=== PATIENT | male | born 1975 | race Caucasian/White ===

== ENCOUNTER 2018-12-11 07:09 | Emergency (ER) | payer BC, OTHER ==
[2018-12-11 07:25] VITALS: BP 131/86
--- NOTE | 2018-12-11 07:29 | UC ---
Respiratory Complaint HPI - HPI Summary HPI Summary: 43 yo male with allergic rhinitis x 2 mos now with >10 day hx of worseing pain (frontal and max ) sinus pressure bilateral ear ache malaise and lassitude no fever chest tight and mild dyspnea and non productive cough He has a history of childhood asthma. He states he gets frequent bronchitis and requires treatment with an inhaler. - History of Current Complaint Chief Complaint: UCRespiratory Stated Complaint: HEAD/ CHEST CONGESTION Time Seen by Provider: 12/11/18 07:27 Hx Obtained From: Patient Onset/Duration: Gradual Onset, Lasting Weeks, Worse Since - >10 days Severity Initially: Mild Severity Currently: Severe Pain Intensity: 8 Pain Scale Used: 0-10 Numeric Character: Cough: Nonproductive Aggravating Factors: Deep Breaths, Recumbent Position Alleviating Factors: Nothing Associated Signs And Symptoms: Positive: Dyspnea - at times, URI, Nasal Congestion, Hoarseness, Sinus Discomfort Related History: Seasonal Allergies, Similar Episode/Dx as: - Bronchitis - Allergies/Home Medications Allergies/Adverse Reactions: Allergies Allergy/AdvReac Type Severity Reaction Status Date / Time codeine Allergy Intermediate GI Upset Verified 12/11/18 07:24 doxycycline Allergy Intermediate Vomiting Verified 12/11/18 07:24 hayfever Allergy Intermediate Runny Nose Uncoded 12/11/18 07:24 Home Medications: Home Medications Cetirizine HCl [Zyrtec] 1 tab PO DAILY 12/11/18 [History Confirmed 12/11/18] Oxymetazoline 0.05% NASAL SPR* [Afrin 0.05% NASAL SPRAY*] 1 spray INH QPM [History Confirmed 12/11/18] PMH/Surg Hx/FS Hx/Imm Hx Previously Healthy: Yes - MÓNICA Respiratory History: Asthma, Bronchitis - Surgical History Surgical History: Yes Surgery Procedure, Year, and Place: 1993 - LEFT knee surgery - Family History Known Family History: Positive: Hypertension - Social History Alcohol Use: Occasionally Substance Use Type: Marijuana Smoking Status (MU): Light Every Day Tobacco Smoker Amount Used/How Often: Social/light smoker Length of Time of Smoking/Using Tobacco: On and off 20+ years Household Exposure Type: Cigarettes Review of Systems All Other Systems Reviewed And Are Negative: Yes Constitutional: Positive: Fatigue ENT: Positive: Ear Ache, Nasal Discharge, Sinus Congestion, Sinus Pain/ Tenderness Respiratory: Positive: Shortness Of Breath - mild and rare, Cough Cardiovascular: Positive: Negative Gastrointestinal: Positive: Negative Genitourinary: Positive: Negative Motor: Positive: Negative Neurovascular: Positive: Negative Musculoskeletal: Positive: Negative Neurological: Positive: Negative Psychological: Positive: Negative Physical Exam Triage Information Reviewed: Yes Appearance: Well-Appearing, No Pain Distress, Well-Nourished Vital Signs: Initial Vital Signs Temp 99.3 F 12/11/18 07:18 Pulse 84 12/11/18 07:18 Resp 20 12/11/18 07:18 BP 131/86 12/11/18 07:18 Pulse Ox 96 12/11/18 07:18 Vital Signs Reviewed: Yes Eyes: Positive: Conjunctiva Clear ENT: Positive: Hearing grossly normal, TM bulging. Negative: Nasal congestion, Nasal drainage, Tonsillar swelling, Tonsillar exudate, Trismus, Muffled voice, Sinus tenderness, Uvula midline Neck: Positive: Supple, Nontender, No Lymphadenopathy Respiratory: Positive: Lungs clear, Normal breath sounds, No respiratory distress, No accessory muscle use Cardiovascular: Positive: RRR, No Murmur Abdomen Description: Positive: Nontender, No Organomegaly Bowel Sounds: Positive: Present Musculoskeletal: Positive: ROM Intact, No Edema Neurological: Positive: Alert Psychological Exam: Normal Skin Exam: Normal Respiratory Course/Dx - Differential Dx/Diagnosis Provider Diagnosis: Acute bronchitis with bronchospasm, Acute sinusitis, Bilateral serous otitis media, Elevated BP without diagnosis of hypertension Discharge ED - Sign-Out/Discharge Documenting (check all that apply): Patient Departure All imaging exams completed and their final reports reviewed: No Studies - Discharge Plan Condition: Stable Disposition: HOME Prescriptions: Amoxicillin PO (*) [Amoxicillin 875 MG (*)] 875 mg PO BID #14 tab predniSONE [Deltasone 20 MG TAB] 40 mg PO DAILY #10 tab Patient Education Materials: Acute Bronchitis (ED), Sinusitis (ED), How to Use a Metered-Dose Inhaler and a Spacer (ED) Referrals: Artem Sullivan MD [Primary Care Provider] - 4 Days (if not better) Additional Instructions: rest fluids saline nasal spray twice daily (2 sprays) your BP was a little elevated (pre hypertensive range) I suspect this is due to feeling ill I sugget you get it rechecked in 1-4 mos - Billing Disposition and Condition Condition: STABLE Disposition: Home
[2018-12-11] MEDS ORDERED: predniSONE TAB* 20 MG PO ONE (07:37)
[2018-12-11] MEDS ORDERED: Albuterol HFA INHALER* 8 gm MDI INH ONE (07:37)
== END 2018-12-11 07:58 | disposition home or self-care (01) ==
LOC: UCEAST 07:09
DX: J20.9 Acute bronchitis, unspecified (principal); J01.90 Acute sinusitis, unspecified; H65.93 Unspecified nonsuppurative otitis media, bilateral; R03.0 Elevated blood-pressure reading, without diagnosis of hypertension; Z88.5 Allergy status to narcotic agent
CPT/HCPCS: 99202; A9270-GY; G0463; J7512